=== PATIENT | male | born 1995 | race Caucasian/White ===

== ENCOUNTER 2017-10-09 21:54 | Emergency (ER) | payer OTHER ==
[~2017-10-09] VITALS: Ht 172.7 cm; Wt 67.5 kg
[~2017-10-09 21:54] MED LIST: NOHOMEMEDS
[2017-10-09] MEDS ORDERED: NORCO 5/3251 TABLET PO (22:58)
[2017-10-09 23:16] VITALS: BP 154/87
== END 2017-10-09 23:21 | disposition home or self-care (01) ==
LOC: EME 21:54
PROC: 2W3JX1Z Immobilization of Right Finger using Splint (ICD-10-PCS; principal; 2017-10-09)
DX: S62.662A Nondisplaced fracture of distal phalanx of right middle finger, initial encounter for closed fracture (principal); S62.664A Nondisplaced fracture of distal phalanx of right ring finger, initial encounter for closed fracture; W23.0XXA Caught, crushed, jammed, or pinched between moving objects, initial encounter; E11.9 Type 2 diabetes mellitus without complications
CPT/HCPCS: 73130; 99281; 99283